=== PATIENT | male | born 1960 | race Caucasian/White ===

== ENCOUNTER 2024-11-23 13:52 | Outpatient (AMB) | payer OTHER, SELFPAY ==
--- NOTE | 2024-11-23 13:53 | A.OFFPC_ITS ---
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 Accompanied by: Self / Same As Patient Allergies clindamycin Allergy (Mild, Verified 11/23/24 14:03) Diarrhea Sulfa (Sulfonamide Antibiotics) Allergy (Mild, Verified 11/23/24 14:03) Rash Tobacco use date assessed: 11/23/24 Dental Screening Dental Screen Date: 11/23/24 Did you have a dental visit in the last 12 months?: Yes Did you have a dental problem in the last 6 months where you did not have access to dental care?: No Was dental information given to patient?: Patient has dentist [facility] Medical History (Updated 11/23/24 @ 14:30 by Zain Hayes MD) ADHD Family History (Updated 11/23/24 @ 14:11 by JOHANNE Tello) Father BP (high blood pressure) Lung cancer Smoker Mother BP (high blood pressure) Pancreatic cancer Social History (Updated 11/23/24 @ 14:11 by JOHANNE Tello) Housing: House Alcohol intake: current Alcohol intake frequency: holidays/special occasions only Patient Tobacco Use Status: Never used Tobacco service: No Current occupational status: retired Cognitive needs: No Hearing needs: Yes (b/l hearing aids ) Vision needs: Yes (rx glasses) Questionnaire PHQ-9 Over the last 2 weeks, how often have you been bothered by any of the following problems? 1. Little interest or pleasure in doing things: not at all 2. Feeling down, depressed, or hopeless: not at all 3. Trouble falling or staying asleep, or sleeping too much: not at all 4. Feeling tired or having little energy: not at all 5. Poor appetite or overeating: not at all 6. Feeling bad about yourself - or that you are a failure or have let yourself or your family down: not at all 7. Trouble concentrating on things, such as reading the newspaper or watching television: not at all 8. Moving or speaking so slowly that other people could have noticed. Or the opposite - being so fidgety or restless that you have been moving around a lot more than usual: not at all 9. Thoughts that you would be better off or of hurting yourself in some way: not at all Total score: 0 Source: Developed by Drs. Dawood Osborne, Tram Tinsley, Wilfrido Mcleod and colleagues, with an educational ron from [employer]. Thrive Questionnaire Date Thrive assessed: 11/23/24 I am a: Patient What is your living situation today?: I have a steady place to live Within the past 12 months, did the food you bought not last and you didn't have the money to get more?: Never true Within the past 12 months, did you worry whether your food would run out before you got money to buy more?: Never true Do you have trouble paying for medicines?: No Do you have trouble getting transportation to medical appointments?: No Do you have trouble paying your heating and electricity bill?: No Do you have trouble taking care of your child, family member or friend?: No Do you have trouble with day-to-day activities such as bathing, preparing meals, shopping, managing finances, etc.?: No Are you currently unemployed and looking for a job?: No Are you interested in more education?: No Please select the resources that you would like help with: None THRIVE Score: 0 AUDIT C Alcohol Use Questionnaire (AUDIT-C) 1. How often do you have a drink containing alcohol?: Monthly or less 2. How many drinks containing alcohol do you have on a typical day when you are drinking?: 1 or 2 3. How often do you have six or more drinks on one occasion?: Never Total Score: 1 LOVE-7 AMB Questionnaire LOVE-7 Date LOVE - 7 assessed: 11/23/24 Feeling nervous, anxious, or on edge: 2 = More than half the days Not being able to stop or control worryin = Several days Worrying too much about different things: 1 = Several days Trouble relaxin = Nearly every day Being so restless that it is hard to sit still: 0 = Not at all Becoming easily annoyed or irritable: 1 = Several days Feeling afraid as if something awful might happen: 3 = Nearly every day Total LOVE-7 score (0-4 normal; 5-9 mild; 10-14 moderate; 15-21 severe): 11 Source: Developed by Drs. Dawood Osborne, Tram Tinsley, Wilfrido Mcleod and colleagues, with an educational ron from [employer]. Physical exam (Primary Care) Vital Signs: Last Vital Signs Temp 97.9 F 11/23/24 13:58 Pulse 100 11/23/24 13:58 Resp 16 11/23/24 13:58 BP 138/65 11/23/24 13:58 Pulse Ox 97 11/23/24 13:58 Oxygen Delivery Method Room Air 11/23/24 13:58 BMI result Body Mass Index 31.7 Tobacco/Smoking Status: Tobacco use Status Tobacco use date assessed 11/23/24 11/23/24 13:56 Patient Tobacco Use Status Never used Tobacco 11/23/24 14:11 PHQ-9: PHQ-9 Score PHQ-9: Total score 0 11/23/24 14:16 Thrive Assessment: Date of Thrive Assessment Date Thrive assessed 11/23/24 11/23/24 13:56 Office Procedures Flu Questionnaire Does the patient have a severe egg allergy?: No Does the patient have severe life threatening allergies?: No Does the patient have a fever or illness today?: No Has the patient ever had Guillain-Ashippun Syndrome?: No Has the patient ever had any past reaction to a flu shot?: No Immunizations Fluarix [id number] (PF) 45 mcg (15 mcg x 3)/0.5 mL IM syringe Performing Provider: Zain Hayes MD [facility] Documented (not given) by: JOHANNE Tello on 11/23/24 14:16 Reason Not Given: Received Previously Coding Level of Care Code New Pt Level 4 (82151) Complex EM visit Add On G2211 Diagnoses Actinic keratosis L57.0 Diabetes mellitus E11.9 ADHD F90.9 Assessment & Plan Assessment & Plan (1) Actinic keratosis: Code(s): L57.0 - Actinic keratosis Plan: Dermatolgy referral made. (2) Diabetes mellitus: Code(s): E11.9 - Type 2 diabetes mellitus without complications Plan: History of Present Illness - The patient is a 64-year-old male presenting for a comprehensive review of [facility] chronic conditions and to establish care in a new location. - Actinic keratosis: The patient reports having rough patches on his scalp, some of which have been treated with cryotherapy in the past year, but have recurred. - His father had similar issues requiring removal of lesions from the scalp. - Eustachian tube dysfunction: The patient has a history of recurrent ear infections and currently has tympanostomy tubes in place, which have been effective in managing his condition. - He regularly checks the placement of these tubes. - Hearing loss: The patient experiences hearing loss attributed to both noise exposure and genetic factors, and occasionally uses hearing aids. - Allergic rhinitis: The patient is allergic to multiple environmental allergens, particularly in the [place], and underwent surgical correction for a deviated septum in 1989. - Torn rotator cuff: The patient is under the care of an salon customer experience specialist for a torn rotator cuff. - Joint stiffness: The patient reports stiffness in his left finger and thumb, particularly upon waking. - Cardiac murmur: The patient has been noted to have a cardiac murmur, which his dispatcher chief oil attributes to benign causes such as caffeine intake or stress. - Inappropriate ventricular tachycardia: The patient has a history of fast heart rate, which has been evaluated and deemed non-pathological. - Dyspnea: The patient reports experiencing increased shortness of breath recently and acknowledges the need for more exercise. - Constipation: The patient has been experiencing hard stools that are difficult to pass, with a history of benign polyps removed during a colonoscopy nine years ago. - Type 2 diabetes mellitus: The patient is managing his diabetes with Mounjaro, insulin, metformin, and Jardiance, and has recently taken a break from Mounjaro due to side effects. - Anxiety: The patient has been experiencing increased anxiety, attributed to recent life changes including [facility] and relocation. - Attention-deficit/hyperactivity disorder (ADHD): The patient has a history of ADHD and is currently taking Vyvanse for management. Social History - The patient is retired from a career in [employer] and recently relocated from [place] to a region with seasonal changes. - He has lost 40 pounds over the past two years using Mounjaro but has paused its use due to side effects. - The patient previously used CPAP for sleep apnea but has not used it for the past year, reporting satisfactory sleep quality. Review of Systems - Dermatological: Reports rough patches on scalp, previously treated with cryotherapy. - Ears: Reports history of recurrent ear infections, tympanostomy tubes in place. - Hearing: Reports hearing loss, uses hearing aids occasionally. - Respiratory: Reports dyspnea, denies current use of CPAP. - Gastrointestinal: Reports constipation with hard stools, history of benign polyps. - Cardiovascular: Reports cardiac murmur, inappropriate ventricular tachycardia. - Musculoskeletal: Reports joint stiffness in left finger and thumb. - Psychiatric: Reports anxiety and ADHD, currently managed with Vyvanse. Physical Exam General: Cooperative and healthy appearing Nutritional Appearance: Well nourished Orientation/consciousness: Patient oriented x3 Limitations: No limitations Head: Normal to inspection General: Appearance normal, both eyes and all related structures Neck: Normal visual inspection Chest: Normal palpation of entire chest wall Respiratory: Patient reports losing breath more easily than desired lately. ormal respiratory effort Neurology: Patient oriented x3. Reports a history of anxiety and ADHD. Results Plan - Referral to dermatology for management of actinic keratosis. - Referral to endocrinology for management of type 2 diabetes mellitus, pending blood work results. - Referral to psychiatry for management of anxiety and ADHD. - Blood work to include hemoglobin A1c and other relevant tests for diabetes management. - Continue current management of tympanostomy tubes and monitor hearing loss. - Monitor cardiac murmur and inappropriate ventricular tachycardia, no immediate intervention required. - Encourage increased physical activity to address dyspnea and overall health. - Follow-up in three months to review progress and adjust management as needed. Discussion Notes I discussed with the patient the need for dermatology referral for actinic keratosis management and endocrinology referral for diabetes management, contingent on blood work results. We also talked about the importance of psychiatric care for anxiety and ADHD, and I will facilitate a referral to psychiatry. The patient was advised to increase physical activity to help with dyspnea and overall health. Follow-up is scheduled in three months to assess p rogress and adjust the management plan as necessary. Patient Instructions - Follow up with dermatology for skin evaluation and treatment. - Schedule an appointment with endocrinology after completing blood work. - Contact psychiatry for an appointment to manage anxiety and ADHD. - Increase physical activity to improve breathing and overall health. - Return for follow-up in three months to review health status and treatment plan. (3) ADHD: Code(s): F90.9 - Attention-deficit hyperactivity disorder, unspecified type Category: Medical Plan: Consult for psychiatry made Orders: Orders Influenza [id number] Immunization Today Z23 - Encounter for immunization Complete Blood Count no Diff Today E11.9 - Type 2 diabetes mellitus without complications Lipid Panel Today E11.9 - Type 2 diabetes mellitus without complications Liver Panel Today E11.9 - Type 2 diabetes mellitus without complications UA and rflx microscopic Today E11.9 - Type 2 diabetes mellitus without complications Microalbumin, Random (w Creat) Today E11.9 - Type 2 diabetes mellitus without complications Hemoglobin A1c Today E11.9 - Type 2 diabetes mellitus without complications Basic Metabolic Panel Today E11.9 - Type 2 diabetes mellitus without complications Thyroid Stimulating Hormone Today E11.9 - Type 2 diabetes mellitus without complications Referrals Psychiatry Outpatient Consultation Service F90.9 - Attention-deficit hyperactivity disorder, unspecified type Dermatology Referral L57.0 - Actinic keratosis
[2024-11-23 13:58] VITALS: BP 138/65; PULSE 100; RESP 16; TEMP 36.6; O2SAT 97; BMI 31.7
== END 2024-11-23 14:40 | disposition home or self-care (01) ==
LOC: HO.HMCSH 13:52
PROVIDERS: PCP Internal Medicine; Visit Provider Internal Medicine
DX: L57.0 Actinic keratosis (principal); E11.9 Type 2 diabetes mellitus without complications; F90.9 Attention-deficit hyperactivity disorder, unspecified type; Z23 Encounter for immunization

== ENCOUNTER → 2024-11-23 13:52 | Outpatient (BNVA) | payer OTHER, SELFPAY | PROVIDERS: PCP Internal Medicine; Visit Provider Internal Medicine | DX: E11.9 Type 2 diabetes mellitus without complications (principal); L57.0 Actinic keratosis; F90.9 Attention-deficit hyperactivity disorder, unspecified type; Z28.89 Immunization not carried out for other reason | CPT/HCPCS: 90471; 96127 ==

== ENCOUNTER 2024-12-07 07:34 | Outpatient (REF) | payer OTHER, SELFPAY ==
[2024-12-07 10:25] LABS: Hematocrit 48.7 % (42.0-52.0); Hemoglobin 15.8 g/dl (14.0-18.0); Mean Corpuscular HGB Conc 32.4 g/dl (31.0-36.0); Mean Corpuscular Hemoglobin 31.2 pg (27.0-33.0); Mean Corpuscular Volume 96.2 fL (80.0-98.0); NRBC Abs Auto 0.000 X10*3/uL (0.0-0.012); NRBC Pct Auto 0.0 /100WBC (0.0-0.2); Platelet Count 283 X10*3/uL (160-400); Red Blood Count 5.06 X10*6/uL (4.60-5.80); White Blood Count 7.5 X10*3/uL (4.8-10.8)
[2024-12-07 10:28] LABS: Appearance Urine Clear; Glucose Urine UA >=1000 mg/dL (Negative); PH 6.5 (5.0-9.0); Specific Gravity - Urine >= 1.030 (1.005-1.025); UMIC TRIGGER UA YES
[2024-12-07 10:46] LABS: Alanine Aminotransferase 40 U/L (0-40); Albumin Level 4.5 g/dL (3.5-5.0); Alkaline Phosphatase 73 U/L (39-117); Anion Gap 12 (12-20); Aspartate Amino Transferase 39 U/L (5-37); Blood Urea Nitrogen 13 mg/dL (9-16); Calcium 9.1 mg/dL (8.4-10.2); Carbon Dioxide 29 mmol/L (22-29); Chloride 104 mmol/L (96-108); Cholesterol 176 mg/dL (<200); Estimated Glomerular Filt Rate > 60; HDL Cholesterol 41 mg/dL (>40); Potassium 4.1 mmol/L (3.3-5.1); Sodium 141 mmol/L (135-145); Total Protein 7.1 g/dL (6.5-8.0); Triglycerides 183 mg/dL (<150)
[2024-12-07 10:56] LABS: Microalbum/Creatinine Ratio Ur 9.0 ug/mg cr (<30)
[2024-12-07 11:03] LABS: Thyroid Stimulating Hormone 1.53 uIU/mL (0.32-4.0)
== END 2024-12-07 07:35 | disposition home or self-care (01) ==
LOC: HO.HMGCLDS 07:34
PROVIDERS: PCP Internal Medicine; Visit Provider Internal Medicine
DX: E11.9 Type 2 diabetes mellitus without complications (principal)
CPT/HCPCS: 36415; 80048; 80061; 80076; 81001; 82043; 82570; 83036; 84443; 85027

== ENCOUNTER 2025-01-25 10:27 | Outpatient (AMB) | payer OTHER, SELFPAY ==
--- OUTSIDE RECORDS SUMMARY | 2025-01-19 23:59 | XMS_ITS | Continuity of Care Document ---
Author Organization [facility] Address [address] [place] [address]- Care Team Providers Care Shaper Operator Name Role Phone Abigail CHRISTIANSEN, Zain Mancini Primary [id number]): [facility] - 01/19/25 [facility] [address] [place] [address]- Attending Physician: Anoop Peck DO Referring Physician: Faisal Sanchez MD Encounter Type: Office Visit Allergies, Adverse Reactions, Alerts Substance Criticality Severity Reaction Reaction Severity Status clindamycin Active sulfa drugs Active Medications acyclovir 800 mg oral tablet 1 tablet = 800 mg, By Mouth, 2 times a day, 0 Refills, Maintenance, 01/17/25 8:03:00 AM EST, Tablet, Partial fill upon patient request if the prescription is for a schedule II opioid drug. Start Date: 01/17/25 Status: Ordered Medication Dispense Status: Completed Total Allowed Fills: 1 Fills Dispensed: 0 amLODIPine 5 mg oral tablet 2 tablet = 10 mg, By Mouth, Daily, # 30 tablet, 0 Refills, Maintenance, 01/17/25 8:03:00 AM EST, Tablet, Partial fill upon patient request if the prescription is for a schedule II opioid drug. Start Date: 01/17/25 Status: Ordered Medication Dispense Status: Completed Quantity: 30.0 Unit: tablet Total Allowed Fills: 1 Fills Dispensed: 0 aspirin 81 mg oral delayed release tablet 81 mg, 1, tablet, By Mouth, Daily, # 30 tablet, Refills 0, Maintenance, 01/17/25 8:05:00 AM EST, Partial fill upon patient request if the prescription is for a schedule II opioid drug. Start Date: 01/17/25 Status: Ordered Medication Dispense Status: Completed Quantity: 30.0 Unit: tablet Total Allowed Fills: 1 Fills Dispensed: 0 Basaglar KwikPen 100 units/mL subcutaneous solution = 50 units, Subcutaneous Injection, Daily, # 10 mL, 0 Refills, Maintenance, 01/17/25 8:04:00 AM EST, Solution, Partial fill upon patient request if the prescription is for a schedule II opioid drug. Start Date: 01/17/25 Status: Ordered Medication Dispense Status: Completed Quantity: 10.0 Unit: mL Total Allowed Fills: 1 Fills Dispensed: 0 Cetirizine 0 Refills, Maintenance, 01/17/25 8:04:00 AM EST, Partial fill upon patient request if the prescription is for a schedule II opioid drug. Start Date: 01/17/25 Status: Ordered Medication Dispense Status: Completed Total Allowed Fills: 1 Fills Dispensed: 0 chondroitin-glucosamine with Ascorbic Acid and Minerals oral capsule 4 capsule, By Mouth, Daily, 0 Refills, Maintenance, 01/17/25 8:06:00 AM EST, Partial fill upon patient request if the prescription is for a schedule II opioid drug. Start Date: 01/17/25 Status: Ordered Medication Dispense Status: Completed Total Allowed Fills: 1 Fills Dispensed: 0 desvenlafaxine 100 mg oral tablet, extended release 1 tablet = 100 mg, By Mouth, Daily, # 30 tablet, 0 Refills, Maintenance, 01/17/25 7:59:00 AM EST, ER Tablet, Partial fill upon patient request if the prescription is for a schedule II opioid drug. Start Date: 01/17/25 Status: Ordered Medication Dispense Status: Completed Quantity: 30.0 Unit: tablet Total Allowed Fills: 1 Fills Dispensed: 0 emtricitabine-tenofovir disoproxil 200 mg-300 mg oral tablet 1 tablet, By Mouth, Daily, # 30 tablet, 0 Refills, Maintenance, 01/17/25 8:03:00 AM EST, Tablet, Partial fill upon patient request if the prescription is for a schedule II opioid drug. Start Date: 01/17/25 Status: Ordered Medication Dispense Status: Completed Quantity: 30.0 Unit: tablet Total Allowed Fills: 1 Fills Dispensed: 0 fenofibrate 160 mg oral tablet 1 tablet = 160 mg, By Mouth, Daily, # 30 tablet, 0 Refills, Maintenance, 01/17/25 8:02:00 AM EST, Tablet, Partial fill upon patient request if the prescription is for a schedule II opioid drug. Start Date: 01/17/25 Status: Ordered Medication Dispense Status: Completed Quantity: 30.0 Unit: tablet Total Allowed Fills: 1 Fills Dispensed: 0 Jardiance 10 mg oral tablet 1 tablet = 10 mg, By Mouth, Daily in AM, # 30 tablet, 0 Refills, Maintenance, 01/17/25 8:02:00 AM EST, Tablet, Partial fill upon patient request if the prescription is for a schedule II opioid drug. Start Date: 01/17/25 Status: Ordered Medication Dispense Status: Completed Quantity: 30.0 Unit: tablet Total Allowed Fills: 1 Fills Dispensed: 0 lisdexamfetamine 50 mg oral capsule 1 capsule = 50 mg, By Mouth, Daily in AM, 0 Refills, Maintenance, 01/17/25 7:59:00 AM EST, Capsule,Partial fill upon patient request if the prescription is for a schedule II opioid drug. Start Date: 01/17/25 Status: Ordered Medication Dispense Status: Completed Total Allowed Fills: 1 Fills Dispensed: 0 lisinopril 10 mg oral tablet 20 mg, 2, tablet, By Mouth, Daily, # 30 tablet, Refills 0, Maintenance, 01/17/25 8:02:00 AM EST, Partial fill upon patient request if the prescription is for a schedule II opioid drug. Start Date: 01/17/25 Status: Ordered Medication Dispense Status: Completed Quantity: 30.0 Unit: tablet Total Allowed Fills: 1 Fills Dispensed: 0 metFORMIN 500 mg oral tablet, extended release 2 tablet = 1,000 mg, By Mouth, 2 times a day, # 90 tablet, 0 Refills, Maintenance, 01/17/25 8:02:00AM EST, ER Tablet, Partial fill upon patient request if the prescription is for a schedule II opioid drug. Start Date: 01/17/25 Status: Ordered Medication Dispense Status: Completed Quantity: 90.0 Unit: tablet Total Allowed Fills: 1 Fills Dispensed: 0 Mounjaro 5 mg/0.5 mL subcutaneous solution = 5 mg, Subcutaneous Injection, Every week, rotate injection sites, # 2 mL, 0 Refills, Maintenance,01/17/25 7:59:00 AM EST, Solution, Partial fill upon patient request if the prescription is for a schedule II opioid drug. Start Date: 01/17/25 Status: Ordered Medication Dispense Status: Completed Quantity: 2.0 Unit: mL Total Allowed Fills: 1 Fills Dispensed: 0 nortriptyline 25 mg oral capsule 50 mg, 2, capsule, By Mouth, Daily at bedtime, # 270 capsule, Refills 0, Maintenance, 01/17/25 8:01:00 AM EST, Partial fill upon patient request if the prescription is for a schedule II opioid drug. Start Date: 01/17/25 Status: Ordered Medication Dispense Status: Completed Quantity: 270.0 Unit: capsule Total Allowed Fills: 1 Fills Dispensed: 0 pantoprazole 40 mg oral delayed release tablet 1 tablet = 40 mg, By Mouth, Daily, # 30 tablet, 0 Refills, Maintenance, 01/17/25 8:00:00 AM EST, ECTablet Start Date: 01/17/25 Status: Ordered Medication Dispense Status: Completed Quantity: 30.0 Unit: tablet Total Allowed Fills: 1 Fills Dispensed: 0 rosuvastatin 20 mg oral tablet 1 tablet = 20 mg, By Mouth, Daily at bedtime, # 60 tablet, 0 Refills, Maintenance, 01/17/25 8:00:00AM EST, Tablet, Partial fill upon patient request if the prescription is for a schedule II opioid drug. Start Date: 01/17/25 Status: Ordered Medication Dispense Status: Completed Quantity: 60.0 Unit: tablet Total Allowed Fills: 1 Fills Dispensed: 0 testosterone 10 mg/actuation transdermal gel Daily in AM, 0 Refills, Maintenance, 01/17/25 8:16:00 AM EST, Partial fill upon patient request if the prescription is for a schedule II opioid drug. Start Date: 01/17/25 Status: Ordered Medication Dispense Status: Completed Total Allowed Fills: 1 Fills Dispensed: 0 Vitamin D3 1000 intl units oral capsule 1 capsule = 25 mcg, By Mouth, Daily, # 75 capsule, 0 Refills, Maintenance, 01/17/25 8:05:00 AM EST,Capsule, Partial fill upon patient request if the prescription is for a schedule II opioid drug. Start Date: 01/17/25 Status: Ordered Medication Dispense Status: Completed Quantity: 75.0 Unit: capsule Total Allowed Fills: 1 Fills Dispensed: 0 Problem List Condition Confirmation Course Effective Dates Status Health St atus Informant Anxiety Confirmed Active ADHD Confirmed Active Hypertensive CKD (chronic kidney disease) Confirmed Active CKD (chronic kidney disease) stage 2, GFR 60-89 ml/min Confirmed Active Dyslipidemia Confirmed Active AV block, 1st degree Confirmed Active Hearing loss Confirmed Active Cardiac murmur Confirmed Active HSV infection Confirmed Active Hypertension Confirmed Active Injury of right rotator cuff Confirmed Active JUAN Confirmed Active Type 2 diabetes mellitus with kidney complication Confirmed Active Procedures Procedure Date Related Diagnosis Body Site Status Septoplasty with turbinate reduction 1989 Completed Cataract Completed ORIF -right distal fibula Completed Vital Signs Most recent to oldest [Reference Range]: 1 Weight 93.6 kg (01/12/25 9:43 AM) Oxygen Saturation [94-100 %] 97 % (01/12/25 9:43 AM) Pulse Rate [55-90 bpm] 90 bpm (01/12/25 9:43 AM) Blood Pressure [90-138/55-84 mm Hg] 130/ 79mm Hg (01/12/25 9:43 AM) Respiratory Rate [16-30 br/min] 16 br/mi n (01/12/25 9:43 AM) Mode of Delivery (Oxygen) Room air (01/12/25 9:43 AM) Blood pressure sites Arm, right (01/12/25 9:43 AM) Dry Weight 93.6 kg (01/12/25 9:43 AM) Weight Obtained Via Standing scale (01/12/25 9:43 AM) Dry Weight Obtained Via Standing scale (01/12/25 9:43 AM) Social History Social History Type Response Smoking Status Never (less than 100 in lifetime) entered on: 01/12/25 Sex Sex Representation Male (finding) EKG study * Event Display: ECG 12-Lead Authored Date: Please click on pdf link to open report * Event Display: ECG 12-Lead Authored Date: Ventricular Rate: 85 BPM Atrial Rate: 85 BPM P-R Interval: 218 ms QRS Duration: 92 ms Q-T Interval: 370 ms QTC Calculation(Bazett): 440 ms P Fanshawe: 47 degrees R Fanshawe: 36 degrees T Fanshawe: 49 degrees Sinus rhythm with 1st degree A-V block Otherwise normal ECG No previous ECGs available Confirmed by SANTOSH VU MD ([id number]) on 01/12/2025 10:55:06 AM [place]: SANTOSH VU MD Patient Care team information Care Team Personnel Name: Abigail CHRISTIANSEN, Zain Mancini Position: Reference Physician Member Role: PCP Address: [address] [place] [address] [address] [place] [id number] Telecom: Care Team Related Persons Name: DWAYNE HAMILTON Insurance Providers Guarantor name: JERILYN Health Plan Information #: 1 Payer: [facility] H61 Payer Identifier: JERILYN Member Number: [id number] Group Number: [id number] Subscriber Identifier: [id number] Relationship to Subscriber: self Coverage Type: PRIVATE HEALTH INSURANCE Coverage Verification Date: JERILYN Telecom: JERILYN Address:
--- NOTE | 2025-01-25 10:34 | A.OFFPC_ITS ---
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 Modeler Required: No Accompanied by: Self / Same As Patient Allergies clindamycin Allergy (Mild, Verified 01/25/25 13:20) Diarrhea Sulfa (Sulfonamide Antibiotics) Allergy (Mild, Verified 01/25/25 13:20) Rash Medication List - Last Reconciled 01/25/25 by Zain Hayes MD acyclovir mg PO amlodipine 5 mg PO DAILY aspirin 81 mg PO DAILY cetirizine 20 mg PO DAILY PRN cholecalciferol (vitamin D3) 50 mcg PO DAILY desvenlafaxine succinate ER 100 mg PO DAILY empagliflozin (Jardiance) 10 mg PO DAILY emtricitabine-tenofovir (TDF) 200-300 mg (Truvada) 1 tab PO DAILY fenofibrate 160 mg PO DAILY insulin glargine (Basaglar KwikPen U-100 Insulin) 50 units (0.5 mL) subcut QPM 90 days lisdexamfetamine 50 mg PO DAILY lisinopril 10 mg PO DAILY metformin ER 500 mg (0.6667 x 750 mg) PO BID 90 days nortriptyline 25 mg PO BID pantoprazole 40 mg PO DAILY rosuvastatin 20 mg PO BEDTIME tadalafil (Cialis) 5 mg PO DAILY Tobacco use date assessed: 11/23/24 Dental Screening Dental Screen Date: 11/23/24 HPI HPI Comments History of Present Illness Details History of Present Illness - The patient is a 64 year old individua l presenting with finger stiffness and soreness, and for management of chronic conditions. - The patient reports recently waking up in the morning with very stiff fingers, which require some time to mobilize. - The patient specifies that the left ri ng finger joint is very sore, and the patient feels it popping in and out of place, which is painful. 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 - Regarding type 2 diabetes, the patient 's A1c was high at the last visit. - The patient had previously been on Jill njaro with good results for weight loss and blood sugar control but stopped due to side effects of nausea and dehydration. - The Basaglar insulin dose was recently increased from 40 to 50 units daily about two to three weeks ago. - The patient reports non-adherence with blood glucose monitoring and needs a new glucometer. - The patient's metformin dose was previ ously reduced to 500 mg twice daily but has tolerated 1000 mg of metformin ER twice daily in the past. - For suspected actinic keratosis on the scalp, a referral was made to a supervisor packing room after the last visit in October, but the patient has not yet been contacted for an appointment. - The patient has a torn rotator cuff an d is scheduled for corrective surgery in one week. - The patient has hearing loss and uses hearing aids. - For anxiety and ADHD, the patient take s Pristiq and Vyvanse, respectively, prescribed by a psychiatrist in [place]. - The patient is very happy with the eff ect of Pristiq at the current dosage but needs a local psychiatrist and has not heard back regarding a referral. - The patient also has a history of cons tipation. Social History - The patient reports experiencing signi ficant stress from recent life events, including moving from [place] and getting . 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 - The patient uses [facility] for m aintenance medications. Results - Lab results were not discussed. [facility] Medical History (Updated 01/25/25 @ 13:19 by Zain Hayes MD) Diabetes mellitus ADHD Family History Father BP (high blood pressure) Lung cancer Smoker Mother BP (high blood pressure) Pancreatic cancer Social History Housing: House Alcohol intake: current Alcohol intake frequency: holidays/special occasions only Patient Tobacco Use Status: Never used Tobacco service: No Current occupational status: retired Cognitive needs: No Hearing needs: Yes (b/l hearing aids ) Vision needs: Yes (rx glasses) Questionnaire PHQ-9 Over the last 2 weeks, how often have you been bothered by any of the following problems? 1. Little interest or pleasure in doing things: not at all 2. Feeling down, depressed, or hopeless: not at all 3. Trouble falling or staying asleep, or sleeping too much: not at all 4. Feeling tired or having little energy: not at all 5. Poor appetite or overeating: not at all 6. Feeling bad about yourself - or that you are a failure or have let yourself or your family down: not at all 7. Trouble concentrating on things, such as reading the newspaper or watching television: not at all 8. Moving or speaking so slowly that other people could have noticed. Or the opposite - being so fidgety or restless that you have been moving around a lot more than usual: not at all 9. Thoughts that you would be better off or of hurting yourself in some way: not at all Total score: 0 Source: Developed by Drs. Dawood Osborne, Tram Tinsley, Wilfrido Mcleod and colleagues, with an educational ron from [employer]. Thrive Questionnaire Date Thrive assessed: 11/23/24 I am a: Patient What is your living situation today?: I have a steady place to live Within the past 12 months, did the food you bought not last and you didn't have the money to get more?: Never true Within the past 12 months, did you worry whether your food would run out before you got money to buy more?: Never true Do you have trouble paying for medicines?: No Do you have trouble getting transportation to medical appointments?: No Do you have trouble paying your heating and electricity bill?: No Do you have trouble taking care of your child, family member or friend?: No Do you have trouble with day-to-day activities such as bathing, preparing meals, shopping, managing finances, etc.?: No Are you currently unemployed and looking for a job?: No Are you interested in more education?: No Please select the resources that you would like help with: None THRIVE Score: 0 AUDIT C Alcohol Use Questionnaire (AUDIT-C) 1. How often do you have a drink containing alcohol?: Monthly or less 2. How many drinks containing alcohol do you have on a typical day when you are drinking?: 1 or 2 3. How often do you have six or more drinks on one occasion?: Never Total Score: 1 LOVE-7 AMB Questionnaire LOVE-7 Date LOVE - 7 assessed: 11/23/24 Feeling nervous, anxious, or on edge: 2 = More than half the days Not being able to stop or control worryin = Several days Worrying too much about different things: 1 = Several days Trouble relaxin = Nearly every day Being so restless that it is hard to sit still: 0 = Not at all Becoming easily annoyed or irritable: 1 = Several days Feeling afraid as if something awful might happen: 3 = Nearly every day Total LOVE-7 score (0-4 normal; 5-9 mild; 10-14 moderate; 15-21 severe): 11 Source: Developed by Drs. Dawood Osborne, Tram Tinsley, Wilfrido Mcleod and colleagues, with an educational ron from [employer]. Review of Systems Narrative Review of Systems - Dermatologic: Reports rough patches on the scalp. - HEENT: Reports hearing loss. - Musculoskeletal: Reports waking with very stiff fingers, a sore left ring finger joint that pops, and having a torn rotator cuff. - Endocrine: Denies checking blood sugars. - Gastrointestinal: Reports a history of constipation. Reports a history of nausea and dehydration with prior Mounjaro use. - Psychiatric: Reports well-controlled anxiety and having ADHD. Physical exam (Primary Care) Vital Signs: Last Vital Signs Temp 97.4 F 01/25/25 10:36 Pulse 100 01/25/25 10:36 Resp 14 01/25/25 10:36 BP 121/60 01/25/25 10:36 Pulse Ox 98 01/25/25 10:36 Oxygen Delivery Method Room Air 01/25/25 10:36 BMI result Body Mass Index 32.8 Tobacco/Smoking Status: Tobacco use Status Tobacco use date assessed 11/23/24 01/25/25 10:36 Patient Tobacco Use Status Never used Tobacco 01/25/25 10:36 PHQ-9: PHQ-9 Score PHQ-9: Total score 0 01/25/25 10:49 Thrive Assessment: Date of Thrive Assessment Date Thrive assessed 11/23/24 01/25/25 10:36 Narrative Physical Exam General: Cooperative and healthy appearing Nutritional Appearance: Well nourished Orientation/consciousness: Patient oriented x3 Limitations: No limitations Head: Normal to inspection General: Appearance normal, both eyes and all related structures Neck: Normal visual inspection Chest: Normal palpation of entire chest wall Respiratory: Normal respiratory effort Neurology: Patient oriented x3 Coding Level of Care Code Complex visit Add On G2211 Diagnoses Diabetes mellitus E11.9 Assessment & Plan Assessment & Plan (1) Diabetes mellitus: Code(s): E11.9 - Type 2 diabetes mellitus without complications Category: Medical Plan Plan - For finger joint pain and stiffness, the diagnosis is early arthritis. - The patient was instructed on stretching exercises, including making fists and wrist movements, to help with stiffness. - Extra Strength Tylenol at night was recommended for discomfort. - The patient will continue naproxen, and no additional anti-inflammatories are needed. - For type 2 diabetes, the metformin ER dose will be increased to 750 mg twice daily. - The patient will continue Basaglar insulin 50 units daily. - The patient was advised to resume regular blood glucose monitoring. - The request to restart Mounjaro is deferred to first assess the response to the current medication adjustments. - The referrals to dermatology for suspected actinic keratosis and to psychiatry for medication management will be followed up on. - Prescriptions for metformin and insulin will be sent to [facility]. - The patient was advised to follow up in three months. Discussion Notes I discussed with the patient that the new onset of morning finger stiffness and sore, popping joints is indicative of early arthritis. We reviewed management strategies, including stretching exercises and using Extra Strength Tylenol for discomfort, and I advised that no additional anti-inflammatories are needed as the patient is already taking naproxen. We addressed the patient's concerns regarding blood sugar control. We agreed to increase metformin ER to 750 mg twice daily while continuing the current insulin dose. I explained that we should assess the effects of these changes before considering restarting Mounjaro, to avoid making too many adjustments simultaneously. I emphasized the importance of regular blood sugar monitoring. I acknowledged the patient's report of not hearing back from the dermatology and psychiatry referrals and assured the patient that I would follow up on them. Follow-up was scheduled for three months to re-evaluate. Patient Instructions - For your finger stiffness, this is likely early arthritis. Please perform daily stretching exercises, such as making a fist, fully opening your hand, and stretching your wrists. - If you have discomfort, you can take Extra Strength Tylenol, especially at night before bed. - We are adjusting your diabetes medication. Please increase your Metformin ER to one 750 mg tablet twice a day (morning and evening). - Continue taking your Basaglar insulin as prescribed, at 50 units daily. - It is very important that you start checking your blood sugars regularly. Please get a new blood sugar meter if needed. - We will follow-up on your referrals to the transmission specialist (supervisor packing room) and the mental health specialist (psychiatrist). - Please schedule a follow-up appointment to see me in three months. Medications: Changed From insulin glargine (Basaglar KwikPen U-100 Insulin) units subcut To insulin glargine (Basaglar KwikPen U-100 Insulin) 50 units (0.5 mL) subcut QPM 45 mL 0RF 90 days From metformin ER 500 mg PO BID To metformin ER 500 mg (0.6667 x 750 mg) PO BID 180 tabs 1RF 90 days
[2025-01-25 10:36] VITALS: BP 121/60; PULSE 100; RESP 14; TEMP 36.3; O2SAT 98; BMI 32.8
== END 2025-01-25 11:44 | disposition home or self-care (01) ==
LOC: HO.HMCSH 10:27
PROVIDERS: PCP Internal Medicine; Visit Provider Internal Medicine
DX: E11.9 Type 2 diabetes mellitus without complications (principal)